=== PATIENT | female | born 1970 | race American Indian/Alaskan Native ===

== ENCOUNTER 2017-09-25 15:06 | Emergency (ER) | payer OTHER ==
--- NOTE | 2017-09-25 16:11 | Emergency Department Report ---
ED CPR HPI - General Chief Complaint: Cardiac Arrest/CPR Stated Complaint: CARDIAC ARREST Time Seen by Provider: 09/25/17 15:06 Source: EMS Mode of arrival: Stretcher Limitations: Other - History of Present Illness Initial Comments: Patient was found unresponsive at home at approx 1430. Her last known well time was 0700. EMS were called. Upon on arrival, EMS states patient was pulseless with a fine VFib rhythem on the monitor. EMS initial treatment was with epinephrine x 4, One amp of D50 and Amiodarone 300 mg. MD Complaint: found unresponsive - Related Data Allergies Allergy/AdvReac Type Severity Reaction Status Date / Time Unable to Assess Allergy Unverified 09/25/17 15:40 ED Review of Systems ROS: Stated complaint: CARDIAC ARREST Other details as noted in HPI Comment: Unobtainable due to pts medical conditions ED Past Medical Hx - Past Medical History Hx Hypertension: Yes - Social History Substance Use Type: Other Other Social History: Per family, they suspect overdose. ED Physical Exam - General Limitations: Other ED Course Vital Signs 09/25/17 15:06 Pulse Rate 0 L Respiratory 0 L Rate Blood Pressure 0/0 Critical care attestation.: If time is entered above; I have spent that time in minutes in the direct care of this critically ill patient, excluding procedure time. ED Disposition Clinical Impression: Cardiac arrest Disposition: DC-20 Is pt being admited?: No Does the pt Need Aspirin: No
[2017-09-25 16:13] VITALS: BP 0/0
[2017-09-25 18:52] LABS: Amphetamine Screen,Urine PRESUMPTIVE NEGATIVE; Benzodiazepines Screen,Urine PRESUMPTIVE NEGATIVE; Cannabinoid Screen,Urine PRESUMPTIVE NEGATIVE; Cocaine Screen,Urine PRESUMPTIVE NEGATIVE; Methadone Screen,Urine PRESUMPTIVE NEGATIVE; Opiate Screen,Urine PRESUMPTIVE NEGATIVE
[2017-09-25] MEDS ORDERED: SODIUM BICARBONATE IV ONE (23:00)
[2017-09-25] MEDS ORDERED: ADRENALIN ONE (23:00)
[2017-09-25] MEDS ORDERED: CORDARONE IV ONE (23:00)
== END 2017-09-25 23:24 ==
LOC: ED 15:06
DX: I46.9 Cardiac arrest, cause unspecified (principal); I10 Essential (primary) hypertension; Z79.899 Other long term (current) drug therapy
CPT/HCPCS: 80307; 82962; 92950; 99285; J0171; J0282